=== PATIENT | male | born 1950 | race Caucasian/White ===

== ENCOUNTER 2024-11-23 13:16 | Emergency (ER) | payer OTHER, SELFPAY ==
[2024-11-23 13:24] VITALS: BP 161/89
[2024-11-23 13:49] LABS: % Basophils 0.6 % (0-2); % Eosinophils 3.5 % (0-6); % Immature Granulocytes 0.2 % (0-0.5); % Lymphocytes 36.2 % (20.5-51.1); % Monocytes 8.7 % (1.7-9.3); % Neutrophils 50.8 % (42.2-75.2); Absolute Eosinophils 0.2 10^3/uL (0-0.7); Absolute Lymphocytes 2.4 10^3/uL (1.2-3.4); Absolute Monocytes 0.6 10^3/uL (0.1-0.6); Absolute Neutrophils 3.3 10^3/uL (1.4-6.5); Hemoglobin 14.7 g/dL (13.0-18.0); Mean Corp Hgb Conc. 33.4 g/dL (33.0-37.0); Mean Corpuscular Hgb 31.4 pg (27.0-31.0); Mean Platelet Volume 9.3 fL (7.4-10.4); Nucleated Red Blood Cells % 0 % (-); Platelet Count 183 10^3/uL (130-400); Red Blood Cell Count 4.68 10^6/uL (4.70-6.10); Red Cell Dist. Width 12.8 % (11.5-14.5); White Blood Cell Count 6.5 10^3/uL (4.8-10.8)
[2024-11-23 14:01] LABS: ALT (SGPT) 30 U/L (0-50); AST (SGOT) 30 U/L (17-59); Alkaline Phosphatase 51 U/L (38-126); Blood Urea Nitrogen 21 mg/dl (9-20); Calcium 9.1 mg/dl (8.4-10.2); Carbon Dioxide 24 mmol/L (22-30); Chloride 105 mmol/L (98-107); Glucose 123 mg/dl (70-99); Potassium 4.4 mmol/L (3.5-5.1); Sodium 137 mmol/L (135-145); Total Bilirubin 0.7 mg/dl (0.2-1.3); Total Protein 7.2 g/dl (6.3-8.2); eGFR > 60.00
[2024-11-23 14:10] LABS: NT-proBNP 488 pg/ml; Troponin I < 0.012 ng/ml
--- NOTE | 2024-11-23 16:00 | ED.GENMED ---
History of Present Illness
General
Chief Complaint: Chest Pain
Source: patient and family
Exam Limitations: none
Time Seen by Provider: 11/23/24 15:07
Nursing documentation reviewed up to this point in time: agreed with
History of Present Illness
History of Present Illness:
Patient with history of chronic atrial fibrillation on Xarelto, presents to ED secondary to shortness of breath at nighttime when he lays down to sleep over the past 3 days, along with recent increased leg swelling. In addition last night, patient
did experience chest pain which resolved spontaneously when he sat up. Denies dizziness. Denies nausea or vomiting. Denies diarrhea. Denies back pain. Denies leg pain. Denies recent travel or surgery. 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
[facility]. Patient reports having received a normal stress test last summer. There is family history of heart disease Patient denies smoking, but does admit to drinking alcohol.
Past History
Past History
ED Past Medical History: HTN, Hypercholesterolemia, IDDM and Other (Vertigo)
ED Past Surgical History: Appendectomy, Cardiac (a fib) and Orthopedic (Left shoulder surgery, Left knee surgery, Hip replacement )
Social History
Tobacco: Non-smoker
Alcohol: Occasional
Personal:
Living: with family
Review of Systems
Review of Systems
Allergies reviewed?: Yes
All Other Systems: ROS reviewed and negative except as documented in HPI and ROS
Constitutional: Reports no symptoms
EENT: Reports no symptoms
Respiratory: Reports trouble breathing
Cardiac: Reports chest pain
ABD/GI: Reports no symptoms
: Reports no symptoms
Musculoskeletal: Reports no symptoms
Skin: Reports no symptoms
Neurological: Reports no symptoms
Phy Exam
Physical Exam
Physical Exam:
Physical Exam
General: mild distress, not acutely ill. afebrile. overweight.
Head: nc/at. eomi
Neck: supple. normal range of motion. no jvd
Heart: s1/s2 regular rate and rhythm, no murmur.
Lungs: no acute respiratory distress. clear bilaterally
Abdomen: normal bowel sounds. not tender.
Neuro: alert and oriented x 3. no focal neurological deficits
Skin: no rash
Psychiatric: well kept. interactive and cooperative
Extremities: LE b/l edema. no calf tenderness.
Scores
Heart Score for Chest Pain Patients
STEMI patient?: Not applicable
Course
Orders/Labs/Results
Orders:
Orders
11/23/24 13:18
Electrocardiogram (*1) Urgent
Reason for Study: Chest Pain
EKG- Treatment ONCE
11/23/24 13:35
BNP [NT-proBNP] Urgent
Complete Blood Count/With Diff Urgent
Comprehensive Metabolic Panel Urgent
Troponin I Urgent
11/23/24 15:40
CR Chest - 2 Views Urgent
Comment:
Reason For Exam: sob
Abnormal Lab Results
11/23/24
13:35
RBC 4.68 L 10^6/uL
(4.70-6.10)
MCH 31.4 H pg
(27.0-31.0)
BUN 21 H mg/dl
(9-20)
Glucose 123 H mg/dl
(70-99)
11/23/24 13:35
11/23/24 13:35
Vital Signs
Initial and Last Documented VS:
Initial Vital Signs
Temp Pulse Resp BP Pulse Ox
98.7 F 74 16 161/89 98
11/23/24 13:24 11/23/24 13:24 11/23/24 13:24 11/23/24 13:24 11/23/24 13:24
Last Documented Vital Signs
Temp Pulse Resp BP Pulse Ox
98.7 F 66 28 144/93 96
11/23/24 13:24 11/23/24 17:45 11/23/24 17:45 11/23/24 17:32 11/23/24 17:45
MDM/Problems Addressed
MDM/Problems Addressed:
Patient is presenting symptoms, i.e. orthopnea, likely multifactorial, including mild fluid retention along with body habitus, i.e. increased abdominal girth potentially pushing up on diaphragm. Discussed with on-call cardiology, Dr. POOJA Fernandes.
Agrees with plan to discharge patient home on Lasix 40 mg daily, along with an outpatient follow-up.
*EKG
Interpreted by ED Provider?: Yes
EKG Intrepretation Date: 11/23/24
Heart Rate: 73
Rate: normal
Rhythm: a-fib
[place]: normal axis
Interval: normal interval
*Critical Care Note
Total Time (30-74mins, 75-104mins- exclusive of procedures): Not Applicable
ED Attending Note
-
Portions of this chart may have been created with voice recognition software.� Occasional wrong word or��sound alike� substitutions may have occurred due to the inherent limitations of voice recognition software.
Discharge Plan
Departure
Patient Disposition: Home (Routine Discharge)
Date of Disposition: 11/23/24
Time of Disposition: 18:09
Patient with high blood pressure during this ER visit?: Yes
Condition: Good
Discharge Problem:
Dyspnea
Instructions: Shortness of breath in adults - ED discharge instructions, Chest Pain DCA Follow Up
Prescriptions:
New
furosemide [Lasix] 40 mg tablet
40 mg PO DAILY Qty: 20 0RF
No Action
atorvastatin 40 MG tablet
40 mg PO QPM
enalapril maleate 10 MG tablet
10 mg PO BID
tamsulosin 0.4 MG capsule
0.4 mg PO DAILY
metformin 500 MG tablet extended release 24 hr
500 mg PO DAILY
rivaroxaban [Xarelto] 20 MG tablet
20 mg PO QPM
metoprolol succinate 25 MG tablet extended release 24 hr
25 mg PO BID Qty: 60 0RF
Rx Instructions:
Increase Toprol XL (metoprolol succinate) to 25 mg twice a day
tramadol [Ultram] 50 MG tablet
50 mg PO Q8HPRN PRN (Reason: pain) Qty: 20 0RF
meclizine 25 MG tablet
25 mg PO TID PRN (Reason: dizziness) Qty: 20 0RF
prednisone 50 MG tablet
50 mg PO DAILY Qty: 2 0RF
oxycodone 5 mg tablet
5 mg PO Q8H PRN (Reason: pain) Qty: 10 0RF
ondansetron 4 mg tablet,disintegrating
4 mg PO TIDPRN PRN (Reason: nausea/vomiting) Qty: 7 0RF
tamsulosin [Flomax] 0.4 mg capsule
0.4 mg PO DAILY Qty: 30 0RF
meclizine [Antivert] 25 mg tablet,chewable
25 mg PO Q8HPRN PRN (Reason: nausea or vertigo) Qty: 20 0RF
Referrals:
Mickey Fernandes MD [Active] -
Shahana Blanco MD [Family Provider] -
Activity Restrictions/Additional Instructions:
As discussed, please follow-up with referred drama professor for further evaluation and treatment. Your prescription has been sent electronically to [facility] in [place].
Interventions
Interventions:
*Risk Screen - Suicide Last Done: 11/23/24 13:24
*Neglect/Abuse Screening Last Done: 11/23/24 13:24
ED- Fall Risk Assessment Last Done: 11/23/24 16:16
*Nursing Disposition Last Done: 11/23/24 18:15
ED- Cardiac Assessment Last Done: 11/23/24 16:16
Discharge Date and Time
Discharge Date/Time: 11/23/24 18:15
Print Language: INDIAN
[2024-11-23 16:12] VITALS: BP 171/107
[2024-11-23 16:32] VITALS: BP 144/99
[2024-11-23 16:36] VITALS: BMI 41.8
[2024-11-23 17:32] VITALS: BP 144/93
== END 2024-11-23 18:15 | disposition home or self-care (01) ==
LOC: EMR 13:16
PROVIDERS: Emergency Medicine; EMERGENCY PHYSICIAN Emergency Medicine; FAMILY PHYSICIAN Family Medicine
DX: R06.00 Dyspnea, unspecified (principal); I10 Essential (primary) hypertension; I48.20 Chronic atrial fibrillation, unspecified; Z79.01 Long term (current) use of anticoagulants
CPT/HCPCS: 99285; 71046; 80053; 83880; 84484; 85025; 93005

== ENCOUNTER 2024-11-29 15:27 | Inpatient (IN) | payer OTHER, SELFPAY ==
[2024-11-29 11:12] VITALS: BP 142/93
[2024-11-29 11:42] LABS: % Basophils 0.6 % (0-2); % Eosinophils 3.9 % (0-6); % Immature Granulocytes 0.3 % (0-0.5); % Lymphocytes 36.2 % (20.5-51.1); % Monocytes 10.3 % (1.7-9.3); % Neutrophils 48.7 % (42.2-75.2); Absolute Eosinophils 0.3 10^3/uL (0-0.7); Absolute Lymphocytes 2.4 10^3/uL (1.2-3.4); Absolute Monocytes 0.7 10^3/uL (0.1-0.6); Absolute Neutrophils 3.3 10^3/uL (1.4-6.5); Hematocrit 45.6 % (39.0-52.0); Hemoglobin 15.3 g/dL (13.0-18.0); Mean Corp Hgb Conc. 33.6 g/dL (33.0-37.0); Mean Corpuscular Hgb 31.4 pg (27.0-31.0); Mean Corpuscular Volume 93.6 fL (80.0-94.0); Mean Platelet Volume 9.3 fL (7.4-10.4); Nucleated Red Blood Cells % 0 % (-); Platelet Count 201 10^3/uL (130-400); Red Blood Cell Count 4.87 10^6/uL (4.70-6.10); Red Cell Dist. Width 12.6 % (11.5-14.5); White Blood Cell Count 6.7 10^3/uL (4.8-10.8)
[2024-11-29 11:57] LABS: ALT (SGPT) 33 U/L (0-50); AST (SGOT) 32 U/L (17-59); Albumin 4.7 g/dl (3.5-5.0); Alkaline Phosphatase 47 U/L (38-126); Blood Urea Nitrogen 17 mg/dl (9-20); Calcium 9.2 mg/dl (8.4-10.2); Carbon Dioxide 26 mmol/L (22-30); Chloride 100 mmol/L (98-107); Glucose 120 mg/dl (70-99); Potassium 4.4 mmol/L (3.5-5.1); Sodium 136 mmol/L (135-145); Total Bilirubin 0.9 mg/dl (0.2-1.3); Total Protein 7.6 g/dl (6.3-8.2); eGFR > 60.00
[2024-11-29 12:07] LABS: Troponin I < 0.012 ng/ml
--- NOTE | 2024-11-29 12:39 | ED.GENMED ---
History of Present Illness
<Cynthia Mcgarry PA-C - Last Filed: 11/29/24 19:03>
General
Chief Complaint: Breathing Problem
Source: patient and records
Exam Limitations: none
Time Seen by Provider: 11/29/24 12:24
History of Present Illness
History of Present Illness:
74yoM with a history of atrial fibrillation on Xarelto, hypertension, hyperlipidemia, type 2 diabetes, and obesity presenting with his family members for evaluation of shortness of breath. Patient reports dyspnea primarily at nighttime. He states he
will wake up feeling short of breath throughout the night. He is worried that his heart will stop beating. He reports that he exercises on a stationary bike for 15 minutes at a time without any issues although his son at bedside states he notices
that patient is short of breath after walking up the steps. He was seen in the ED on 11/23/24 for these symptoms and was started on Lasix 40mg daily. He saw Dr. Townsend yesterday in the office and plan was for outpatient echocardiogram, stress test,
and sleep study. Patient called the office this morning due to his worsening symptoms and was advised to go to the ED for evaluation.
Past History
<Cynthia Mcgarry PA-C - Last Filed: 11/29/24 19:03>
Past History
ED Past Medical History: HTN, Hypercholesterolemia, IDDM and Other (Vertigo)
ED Past Surgical History: Appendectomy, Cardiac (a fib) and Orthopedic (Left shoulder surgery, Left knee surgery, Hip replacement )
Social History
Tobacco: Non-smoker
Alcohol: Occasional
Personal:
Living: with family
Phy Exam
<Cynthia Mcgarry PA-C - Last Filed: 11/29/24 19:03>
General Physical Exam
General Presentation: well appearing and no apparent distress
General Skin: warm and dry
General Habitus: normal and obese
General Mental: alert
ENT Exam
ENT Exam: normocephalic
Cardiovascular Exam
Cardiovascular Exam: no murmur, irregularly irregular and other (Trace edema in bilateral lower extremities)
Pulmonary Exam
Pulmonary Exam: lungs clear, no respiratory distress, no rales, no crackles, no rhonchi and no wheezing
Neurological Exam
Neurological Exam: alert
[place] Coma Scale
Eye Opening: Spontaneous
Verbal Response: Oriented
Motor Response: Obeys Commands
GCS Total Score: 15
Skin Exam
Skin Exam: normal color and warm/dry
Psychiatric Exam
Psychiatric Exam: normal mood/affect
Scores
<Cynthia Mcgarry PA-C - Last Filed: 11/29/24 19:03>
Heart Failure Risk
Heart Failure Risk Score: Not Applicable
Course
<Cynthia Mcgarry PA-C - Last Filed: 11/29/24 19:03>
Orders/Labs/Results
Orders:
Orders
11/29/24 11:14
Electrocardiogram (*1) Urgent
Reason for Study: Shortness of Breath
11/29/24 11:15
EKG- Treatment ONCE
Chest [CR Chest - 2 Views ] Urgent
Comment:
Reason For Exam: SOB
11/29/24 11:25
Complete Blood Count/With Diff Urgent
Comprehensive Metabolic Panel Urgent
NT-proBNP Urgent
Comment: ADD ON
TSH Urgent
Comment: ADD ON
Troponin I Urgent
11/29/24 12:29
Add On- LAB Urgent
Tests Added?: pro BNP
11/29/24 12:40
Cardiac Monitoring- Treatment ONCE
11/29/24 12:46
Add On- LAB Urgent
Tests Added?: TSH
11/29/24 12:57
CARDIOLOGY CONSULT Routine
Consulting Provider: Kennedi Richards
Was physician already notified: Yes
Furosemide [Lasix] 40 mg IV NOW STA
11/29/24 14:17
Admit/Transfer Patient As Directed
Co-Sign Provider:
Level of Care: Inpatient admission
Assign to:: Telemetry
Physician / Group: Alis Suárez
Diagnosis: heart failure
Reason for Telemetry: Pulmonary Edema
Date to Stop Telemetry: 12/02/24
Time to Stop Telemetry: 11:00
Reason for Hospitalization: heart failure
Expected length of stay greater than two midnights?: Yes
ELOS- Estimated Length of Stay in days: 3
I certify the patient meets the requirements for IP care: Yes
PRN Pain Medication Management As Directed
May give lesser potent ordered pain med per pt: Yes
preference::
Protocol:: Medication orders for pain may be administered in a
manner that supports deferring to patient preference
when the pt is:
- Requesting an ordered lesser potent pain medication.
Least to most potent pain medications are defined
as: acetaminophen < NSAID < tramadol < opioids
(morphine, oxycodone, hydromorphone).
- Requesting a lesser dose of the same medication IF
ORDERED.
- Requesting a less intrusive route of administration
if both routes are prescribed by the provider (PO <
IV).
11/29/24 14:18
Echo 2D MMode Color/Doppler Routine
Reason for Study: paroxysmal nocturnal dyspnea
11/29/24 14:19
Code Status As Directed
Resuscitation Status: Full Code
12/02/24 11:00
DC Protocol for Telemetry ONCE
Abnormal Lab Results
11/29/24
11:25
MCH 31.4 H pg
(27.0-31.0)
Absolute Monos (auto) 0.7 H 10^3/uL
(0.1-0.6)
Monocytes % 10.3 H %
(1.7-9.3)
Glucose 120 H mg/dl
(70-99)
11/29/24 11:25
11/29/24 11:25
Vital Signs
Initial and Last Documented VS:
Initial Vital Signs
Temp Pulse Resp BP Pulse Ox
98.4 F 63 18 142/93 96
11/29/24 11:12 11/29/24 11:12 11/29/24 11:12 11/29/24 11:12 11/29/24 11:12
Last Documented Vital Signs
Temp Pulse Resp BP Pulse Ox
98.4 F 76 20 125/79 95
11/29/24 11:12 11/29/24 18:30 11/29/24 18:30 11/29/24 17:17 11/29/24 18:30
<Ben Workman, DO - Last Filed: 11/29/24 14:02>
Orders/Labs/Results
Orders:
Orders
11/29/24 11:14
Electrocardiogram (*1) Urgent
Reason for Study: Shortness of Breath
11/29/24 11:15
EKG- Treatment ONCE
Chest [CR Chest - 2 Views ] Urgent
Comment:
Reason For Exam: SOB
11/29/24 11:25
Complete Blood Count/With Diff Urgent
Comprehensive Metabolic Panel Urgent
NT-proBNP Urgent
Comment: ADD ON
TSH Urgent
Comment: ADD ON
Troponin I Urgent
11/29/24 12:29
Add On- LAB Urgent
Tests Added?: pro BNP
11/29/24 12:40
Cardiac Monitoring- Treatment ONCE
11/29/24 12:46
Add On- LAB Urgent
Tests Added?: TSH
11/29/24 12:57
CARDIOLOGY CONSULT Routine
Consulting Provider: Kennedi Richards
Was physician already notified: Yes
Furosemide [Lasix] 40 mg IV NOW STA
11/29/24 14:17
Admit/Transfer Patient As Directed
Co-Sign Provider:
Level of Care: Inpatient admission
Assign to:: Telemetry
Physician / Group: Alis Suárez
Diagnosis: heart failure
Reason for Telemetry: Pulmonary Edema
Date to Stop Telemetry: 12/02/24
Time to Stop Telemetry: 11:00
Reason for Hospitalization: heart failure
Expected length of stay greater than two midnights?: Yes
ELOS- Estimated Length of Stay in days: 3
I certify the patient meets the requirements for IP care: Yes
PRN Pain Medication Management As Directed
May give lesser potent ordered pain med per pt: Yes
preference::
Protocol:: Medication orders for pain may be administered in a
manner that supports deferring to patient preference
when the pt is:
- Requesting an ordered lesser potent pain medication.
Least to most potent pain medications are defined
as: acetaminophen < NSAID < tramadol < opioids
(morphine, oxycodone, hydromorphone).
- Requesting a lesser dose of the same medication IF
ORDERED.
- Requesting a less intrusive route of administration
if both routes are prescribed by the provider (PO <
IV).
11/29/24 14:18
Echo 2D MMode Color/Doppler Routine
Reason for Study: paroxysmal nocturnal dyspnea
11/29/24 14:19
Code Status As Directed
Resuscitation Status: Full Code
12/02/24 11:00
DC Protocol for Telemetry ONCE
Abnormal Lab Results
11/29/24
11:25
MCH 31.4 H pg
(27.0-31.0)
Absolute Monos (auto) 0.7 H 10^3/uL
(0.1-0.6)
Monocytes % 10.3 H %
(1.7-9.3)
Glucose 120 H mg/dl
(70-99)
11/29/24 11:25
11/29/24 11:25
Vital Signs
Initial and Last Documented VS:
Initial Vital Signs
Temp Pulse Resp BP Pulse Ox
98.4 F 63 18 142/93 96
11/29/24 11:12 11/29/24 11:12 11/29/24 11:12 11/29/24 11:12 11/29/24 11:12
Last Documented Vital Signs
Temp Pulse Resp BP Pulse Ox
98.4 F 76 20 125/79 95
11/29/24 11:12 11/29/24 18:30 11/29/24 18:30 11/29/24 17:17 11/29/24 18:30
<Cynthia Mcgarry PA-C - Last Filed: 11/29/24 19:03>
MDM/Problems Addressed
Differential Diagnosis Includes:
74yoM here with SOB, PND, and orthopnea. Seen in the ED last week for the same and seen by cardiology in the office yesterday. No CP. Currently feeling well. VSS. He is well appearing in no distress. Trace edema in extremities. Lungs CTA and
respirations non-labored. Differential diagnosis includes but is not limited to: CHF exacerbation, DONTE, pneumonia, ACS
Initial ED plan: Cardiac labs and EKG obtained in triage. EKG shows slow afib without ischemic changes. Troponin WNL. Will add BNP and CXR. Will discuss with cardiology.
<Cynthia Mcgarry PA-C - Last Filed: 11/29/24 19:03>
*EKG
Interpreted by ED Provider?: Yes
EKG Intrepretation Date: 11/29/24
Heart Rate: 56
Rate: bradycardiac
Rhythm: a-fib
[place]: normal axis
Interval: normal interval
QRS Pattern: normal QRS
Ischemia: no ischemia
*Critical Care Note
Total Time (30-74mins, 75-104mins- exclusive of procedures): Not Applicable
<Cynthia Mcgarry PA-C - Last Filed: 11/29/24 19:03>
Update Note
Update Note:
Chest x-ray clear without signs of pulmonary edema. BNP actually improved from last week. Case discussed with production graphic designer on-call, Dr. Richards, who recommends admission. 40mg IV Lasix ordered and patient admitted for further evaluation and
management.
ED Attending Note
<Cynthia Mcgarry PA-C - Last Filed: 11/29/24 19:03>
-
Portions of this chart may have been created with voice recognition software.� Occasional wrong word or��sound alike� substitutions may have occurred due to the inherent limitations of voice recognition software.
<Ben Workman DO - Last Filed: 11/29/24 14:02>
ED Attending Note
Patient seen and examined by attending physician: Yes
I performed the substantive portion of visit, reviewed & personally made and approve the management plan that is documented in note by myself or ONEAL.: Yes
ED Attending Note:
Seen with PA examined independently 74-year-old male subacute onset of shortness of breath had been in the ER recently weight is actually down after diuretic apparently sent in for an echo stress test will need an outpatient sleep study
Discharge Plan
Departure
Patient Disposition: Admit
Date of Disposition: 11/29/24
Time of Disposition: 12:59
Presentation/result/management discussed w/ accepting MD/DO: Hospitalist
Discharge Problem:
Shortness of breath, Acute exacerbation of CHF (congestive heart failure)
Interventions
Interventions:
*Risk Screen - Suicide Last Done: 11/29/24 11:12
*General Assessment Last Done: 11/29/24 11:12
*Neglect/Abuse Screening Last Done: 11/29/24 11:12
ED- Cardiac Assessment Last Done: 11/29/24 14:11
ED- Pulmonary Assessment Last Done: 11/29/24 14:11
[2024-11-29] MEDS: LASIX 40 MG IV ×2 (13:02→21:33)
[2024-11-29 13:33] LABS: NT-proBNP 368 pg/ml
--- NOTE | 2024-11-29 13:44 | HPS.HSE ---
Family Physician
-
Family Physician: Shahana Blanco MD
Chief Complaint
-
shortness of breath
History of Present Illness
Mr. George Roque is a 74 yo man with hx paroxysmal afib, essential HTN, HLD, DM II, BPH presents to the ER with shortness of breath predominately at nighttime. He was seen int he ER on 11/23/24 for similar symptoms, case was discussed with
Dom and patient was started on Lasix 40mg PO QD with outpatient follow up.
Patient states that since last visit he has lost 11-12 pounds and has been urinating a lot. He saw Dr. Townsend in clinic yesterday. Overnight he had a more difficult time sleeping, he felt he couldn't breathe laying flat and so was told to come
to the ER. He has some mild chest pressure during periods of shortness of breath at night, denies discomfort during the day. Denies shortness of breath with activity. He had LE swelling before last ER visit that is now resolved. Currently at
rest he denies symptoms.
No recent fevers/chills. No nausea/vomiting/diarrhea. No abdominal pain.
Medical History
Past Medical History
Past Medical History: Reports Other ( paroxysmal afib, essential HTN, HLD, DM II, BPH)
Past Surgical History: Reports Other
Social History
Tobacco: Non-smoker
Alcohol: Daily (has not drank in 12 days )
Family History
Family History: Not pertinent
Allergies / Home Medications
Allergies reflects when Allergies were last updated in [facility].
Home Medications with original date entered in [facility]
Allergy/Medication List:
Allergies
Allergy/AdvReac Type Severity Reaction Status Date / Time
No Known Allergies Allergy Verified 11/29/24 11:12
Home Medications
rivaroxaban 20 mg tablet (Xarelto) 20 mg PO QPM 10/03/17
tamsulosin 0.4 mg capsule 0.4 mg PO DAILY 10/03/17
furosemide 40 mg tablet (Lasix) 40 mg PO DAILY #20 tabs 11/23/24
amlodipine 5 mg tablet (Norvasc) 5 mg PO DAILY 11/29/24
enalapril maleate 20 mg tablet 20 mg PO DAILY 11/29/24
ezetimibe 10 mg tablet (Zetia) 10 mg PO DAILY 11/29/24
icosapent ethyl 1 gram capsule (Vascepa) 2 g PO BID 11/29/24
metformin 500 mg tablet 500 mg PO BID 11/29/24
rosuvastatin 40 mg tablet (Crestor) 40 mg PO DAILY 11/29/24
Review of Systems
-
History Source: Patient
A 12 point ROS was completed and negative except as noted: Yes
Physical Exam
Vital Signs
Vital Signs
Temp Pulse Resp BP Pulse Ox
98.4 F 63 18 142/93 96
11/29/24 11:12 11/29/24 11:12 11/29/24 11:12 11/29/24 11:12 11/29/24 11:12
Physical Exam
General: No Apparent Distress
HEENT: PERRLA
Respiratory: No Wheezes or Rales
Cardiac: S1/S2 and Regular Rhythm
GI: Soft and Non Tender
Musculoskeletal: No Edema
Skin: Warm and Dry; No Rash
Neuro: AO x 3
Psych: Calm
Laboratory Results
-
11/29/24 11:25
11/29/24 11:25
Laboratory Results
Total Bilirubin 0.9 mg/dl (0.2-1.3) 11/29/24 11:25
AST 32 U/L (17-59) 11/29/24 11:25
ALT 33 U/L (0-50) 11/29/24 11:25
Alkaline Phosphatase 47 U/L (38-126) 11/29/24 11:25
Troponin I < 0.012 ng/ml 11/29/24 11:25
Data Reviewed
-
Diagnostic Radiology: Report Reviewed by me
Lab Data: Labs Reviewed by me
Impression/Plan
-
Mr. George Roque is a 74 yo man with hx paroxysmal afib, essential HTN, HLD, DM II, BPH presents to the ER with shortness of breath predominately at nighttime. He was seen int he ER on 11/23/24 for similar symptoms, case was discussed with
Dom and patient was started on Lasix 40mg PO QD with outpatient follow up.
Triage VS:
T 98.4, P 63, RR 18, BP 142/93, SpO2 96%
LABS: WBC 6.7, Hg 15.3, PLT 201, Na 136, K+ 4.4, CO2 26, BUN 17, Cr 0.9, Glucoe 120, liver enzymes WNL
EKG: Afib, rate 56
CXR
IMPRESSION:
No acute cardiopulmonary abnormality.
Low lung volumes.
MAR: Lasix 40mg IV x 1
Heart Failure, unknown EF
Paroxysmal Nocturnal Dyspnea
-admit to telemetry
-TTE
-trend Troponins
-Lasix 40mg IV QD - adjust as needed
-daily weights, strict I/O
-cardiology consult
-patient will need sleep study as outpatient, continue evening nocturnal O2 testing prior to DC
Paroxysmal Fib
-TANK CREWMEMBER Xarelto - change to heparin gtt if elevated Troponins
Essential HTN
-TANK CREWMEMBER Amlodipine, Enalapril
Hyperlipidemia
-T[employer]MEMBER Rosuvastatin
DM II
-hold TANK CREWMEMBER Metformin
-ISS low
BPH
-TANK CREWMEMBER Flomax
DVT PPx TANK CREWMEMBER Xarelto
FULL CODE
[2024-11-29 14:09] VITALS: BMI 37.1
[2024-11-29 14:48] LABS: TSH 1.27 uIU/ml (0.47-4.68)
--- NOTE | 2024-11-29 16:36 | CON.CAR ---
Addendum entered and electronically signed by Mickey Finn MD 11/29/24 17:42:
Attending addendum: Briefly this is a 74 y/o gentleman with a history of atrial fibrillation on chronic oral anticoagulation. He recently transitioned care from Dr. Velez at [place] to Dr. Townsend. he presented to [facility] with complaints
of PND and orthopnea. Symptoms have been intermittent over some time but worsening of late. An order has been written for a sleep study but not completed or even scheduled yet.
No chest pain. Weights slowly increasing.
Tob: None
ETOH: Vodka use is reported to be much heavier per his daughter than reported by the patient. He stated 2-3 drinks of Vodka and she responded it is 2-3x more than he stated. She also states he drinks whiskey and cognac in addition to the vodka
PE:
Gen: Mobridly obese
HEENT: NC/AT, sclera anicteric
Lungs: Crackles at bases. No wheezing. Good air movement
CV: Irreg irreg. No murmur noted
Abd: Soft, nontender, nondistended.
Ext: Good distal pulses. Trace edema
ProBnp: 368, Trop <0.012, TSH: 1.27, Gluc: 120
RECOMMENDATIONS:
-Echocardiogram
-May consider SGLT2 if EF normal.
-Needs tight blood pressure control.
-Would change enalapril (typically a 2x daily med) to either lisinopril or benazepril given longer half-life of these medications. Lets start lisinopril
-I suspect he will have significant obstructive sleep apnea: monitor
-IV diuresis
-Planned cardioversion. Will need to be clear if he has been compliant with oral anticoagulation vs ITZEL / CV
-Monitor for withdrawal symptoms. Family indicates significant alcohol use and seems to indicate that patient minimized reported intake
Original Note:
Consultation
Consultation Request
Date/Time Consultation Requested: 11/29/24
Date/Time Consultation Performed: 11/29/24
Requesting Provider: Dr. Suárez
Performing Provider: Dr. Finn
Reason for Consultation: Acute HF
Medical History
-
History of Present Illness:
Patient came to ER today with overnight symptoms of orthopnea is now being admitted with acute HF and cardiology has been consulted. Patient was previously followed by Dr. Velez at [place] for his cardiology care. He has a history of A-fib
and reportedly has not had an attempt at rhythm control and denies ever having been CV'd in the past. Patient is chronically on Xarelto 20 mg daily. Patient is not chronically on any rate control therapy. Patient establish new cardiology care with
Dr. Townsend in the office yesterday after an evaluation in ER on 11/23/2024 at which time he was started on Lasix 40 mg daily for evidence of acute HF. When patient was seen in the office yesterday he appeared improved, but overnight had more
orthopnea and came to ER today. Interestingly, proBNP is lower than last and is only 368 today and CXR without pleural effusion.
PMH:
Persistent Afib
Chronic Xarelto OAC
HTN
Hyperlipidemia
Past Medical History
Past Medical History: Other (in HPI)
Past Surgical History: Appendectomy and Orthopedic
Social History
Tobacco: Non-Smoker
Alcohol: Other (4-6 drinks (vodka shots) 3-4 times a week)
Drug: None
Living: With Family
Family History
Family History: CAD and Other (3 older brothers with CVA)
Allergies / Home Medications
Allergy/AdvReac Type Severity Reaction Status Date / Time
No Known Allergies Allergy Verified 11/29/24 11:12
�Medication �Instructions �Recorded �Confirmed �Type
rivaroxaban 20 mg tablet (Xarelto) 20 mg PO QPM Blood Clot 10/03/17 11/29/24 History
Prevention/Tx
tamsulosin 0.4 mg capsule 0.4 mg PO DAILY Urinary Issue 10/03/17 11/29/24 History
amlodipine 5 mg tablet (Norvasc) 5 mg PO DAILY Blood Pressure 11/29/24 11/29/24 History
enalapril maleate 20 mg tablet 20 mg PO DAILY Blood Pressure 11/29/24 11/29/24 History
ezetimibe 10 mg tablet (Zetia) 10 mg PO DAILY High Cholesterol 11/29/24 11/29/24 History
furosemide 40 mg tablet (Lasix) 40 mg PO DAILY Fluid 11/29/24 11/29/24 History
Retention/Swelling
icosapent ethyl 1 gram capsule 2 g PO BID High Cholesterol 11/29/24 11/29/24 History
(Vascepa)
metformin 500 mg tablet 500 mg PO BID Diabetes 11/29/24 11/29/24 History
rosuvastatin 40 mg tablet (Crestor) 40 mg PO DAILY High Cholesterol 11/29/24 11/29/24 History
Review of Systems
-
History Source: Patient and Family (daughter bedside helping with HPI)
All other systems: Negative unless noted
Physical Exam
Vital Signs
Temp Pulse Resp BP Pulse Ox
98.4 F 71 21 142/93 96
11/29/24 11:12 11/29/24 14:00 11/29/24 14:00 11/29/24 11:12 11/29/24 14:00
GEN: NAD. AAOx3
HEENT: EOMI, MMM
LUNGS: RA. CTA B/L, no wheeze
CV: Afib on tele, rate controlled. Reg, S1/S2, 1/ syst LSB
ABD: soft, BS+, NT, ND
EXT: Trace B/L LE edema. No clubbing, cyanosis or lesions B/L
NEURO: Gross non-focal
SKIN: Warm, dry and pink. No rash
Lab Results
11/29/24 11:25
11/29/24 11:25
Troponin I < 0.012 ng/ml 11/29/24 11:25
Gcu-T-Ggtmnegtddd Pept Cancelled 11/29/24 12:25
Impression / Plan
-
PCP: Dr. Blanco
Cardiology: Dr. Townsend, seen as a new patient 11/28/24
Impression:
Admitted with acute HF 11/29/24
Acute HFpEF
EF preserved by preliminary echo report 11/29/24
Persistent Afib
Chronic Xarelto OAC
HTN
Hyperlipidemia
Echo 05/2024: [place] study, EF 60 to 65%, mild TR
Echo 11/29/2024: Preliminary report, preserved EF, no significant valve disease
Plan:
-Patient came to ER today with overnight symptoms of orthopnea is now being admitted with acute HF and cardiology has been consulted. Patient was previously followed by Dr. Velez at [place] for his cardiology care. He has a history of A-fib
and reportedly has not had an attempt at rhythm control and denies ever having been CV'd in the past. Patient is chronically on Xarelto 20 mg daily. Patient is not chronically on any rate control therapy. Patient established new cardiology care
with Dr. Townsend in the office yesterday after an evaluation in ER on 11/23/2024 at which time he was started on Lasix 40 mg daily for evidence of acute HF. When patient was seen in the office yesterday he appeared improved, but overnight had
more orthopnea and came to ER today. Interestingly, proBNP is lower than last and is only 368 today and CXR without pleural effusion.
-ECG reviewed by me with Afib in controlled ventricular response.
-pro-BNP is lower than last ER visit last week, but patient with ongoing orthopnea. Agree with attempt at IV diuresis with Lasix 40 mg IV BID.
-Patient with protuberant abdomen and some of his SOB and orthopnea might be physiologic.
-Await final echo report.
-Will try adding Toprol XL 12.5 mg daily
-Cont outpatient dose of enalapril 10 mg daily
-Cont outpatient dose of amlodipine 5 mg daily
-Consider adding Farxiga 10 mg daily
-Patient with persistent Afib and reportedly no previous attempt at rhythm control and no h/o CV. Following IV diuresis will attempt CV on Tuesday. Reviewed with patient and daughter that given persistent nature of Afib that if patient has an
unsuccessful CV then we would add AAD and consider evaluation for ablation pending patient's symptomatic response to mandaen of SR.
-Cont outpatient dose of Xarelto 20 mg daily, no missed doses
-Patient will need an outpatient sleep study, but if significant pauses seen on tele could consider a continuous pulse ox. Patient's daughter was told that CPAP therapy can only be ordered from the results of an outpatient sleep study.
-Task sent to medical records at [facility] office to try and obtain the records that patient's daughter says she brought to appt yesterday. Task in eCW.
-Patient's daughter requesting a private room for patient she says because patient snores. Called admissions and made them aware. Advised patient and daughter that based on census this might be difficult to accommodate.
[2024-11-29 17:17] VITALS: BP 125/79
[2024-11-29 19:33] VITALS: BP 127/86
[2024-11-29 20:00] VITALS: BP 113/92
--- NOTE | 2024-11-29 20:08 | EDRN ---
Pt. noted to have 1.7 second pause on rn cardiac cath. Strip printed and scanned into chart, admitting team notified of event, no further orders at this time, will continue to monitor.
[2024-11-29 20:35] VITALS: BMI 35.2
[2024-11-29 21:00] VITALS: BP 137/90
[2024-11-29 21:18] LABS: Glucose - Point of Care 103 mg/dl (70-99)
[2024-11-29] MEDS: XARELTO 20 MG PO (21:32)
[2024-11-29 22:28] LABS: Troponin I < 0.012 ng/ml
[2024-11-29 23:00] VITALS: BP 121/79
[2024-11-30] VITALS (9 sets, daily range): BP systolic 82–135; BP diastolic 50–81; BMI 34.7
[2024-11-30 00:17] LABS: Glucose - Point of Care 113 mg/dl (70-99)
[2024-11-30 04:23] LABS: Troponin I < 0.012 ng/ml
[2024-11-30 06:49] LABS: Hematocrit 50.2 % (39.0-52.0); Mean Corp Hgb Conc. 33.9 g/dL (33.0-37.0); Mean Corpuscular Hgb 31.7 pg (27.0-31.0); Mean Corpuscular Volume 93.5 fL (80.0-94.0); Mean Platelet Volume 9.4 fL (7.4-10.4); Platelet Count 218 10^3/uL (130-400); Red Blood Cell Count 5.37 10^6/uL (4.70-6.10); Red Cell Dist. Width 12.5 % (11.5-14.5); White Blood Cell Count 7.9 10^3/uL (4.8-10.8)
[2024-11-30 07:17] LABS: Blood Urea Nitrogen 20 mg/dl (9-20); Calcium 9.6 mg/dl (8.4-10.2); Carbon Dioxide 28 mmol/L (22-30); Chloride 100 mmol/L (98-107); Estimated Creatinine Clearance 80 ml/min; Glucose 128 mg/dl (70-99); HDL Cholesterol 43 mg/dl; LDL Cholesterol, Calculated 155 mg/dl; Magnesium 2.4 mg/dl (1.6-2.3); Potassium 4.4 mmol/L (3.5-5.1); Sodium 140 mmol/L (135-145); Total Cholesterol 227 mg/dl (50-199); Triglyceride 145 mg/dl (10-149); Very Low Density Lipoprotein 29 mg/dl (0-30); eGFR > 60.00
[2024-11-30 08:04] LABS: Hepatitis C Antibody Negative (Negative)
[2024-11-30] MEDS: ZETIA 10 MG PO (08:30)
[2024-11-30] MEDS: NORVASC 5 MG PO (08:31)
[2024-11-30] MEDS: ZESTRIL 20 MG PO (08:32)
[2024-11-30] MEDS: FLOMAX 0.4 MG PO (08:32)
[2024-11-30] MEDS: CRESTOR 40 MG PO (08:32)
[2024-11-30] MEDS: LASIX 40 MG IV (08:32)
[2024-11-30 08:37] LABS: Glucose - Point of Care 123 mg/dl (70-99)
--- NOTE | 2024-11-30 09:49 | W.PN.CARDCBS ---
Addendum entered and electronically signed by Mickey Fernandes MD 11/30/24 16:22:
74-year-old man admitted with acute HFpEF and persistent atrial fibrillation. He apparently was still complaining of dyspnea last night, maybe better now. He has been hypotensive on lisinopril and amlodipine 5 mg daily
PMH: In addition to above hypertension, hyperlipidemia, type 2 diabetes
Current medications: Lisinopril 20 mg a day, amlodipine 5 mg a day, ezetimibe 10 mg a day, Vascepa, Xarelto 20 mg a day, rosuvastatin 40 mg a day, tamsulosin 0.4 mg daily, furosemide 40 IV twice daily and metoprolol ER 25 mg daily
117/65, 88/53, weight is 106.6 kg, down 1.3 kg, if accurate was 117.4 kg in ER on November 23, offers no complaints, seems comfortable, irregular rate and rhythm, no obvious murmurs, JVD okay, abdomen obese, not much edema
EKG today atrial fibrillation, 71 bpm, nonspecific ST changes
White count 7.9, hemoglobin 17, platelets 218, BUN and creatinine 20 and 1.0, potassium 4.4, proBNP 368, troponin undetectable
Impression:
Acute HFpEF
Persistent atrial fibrillation
Hypertension
Hyperlipidemia
Type 2 diabetes
Echo 11/29/2024: EF is 55 to 60%, dilated left atrium, trace mitral regurgitation, normal aortic valve, pulmonary artery systolic pressure 35 to 35 mmHg normal RV
Plan:
Continue IV furosemide
Add Farxiga, check with case management already cost
Hold amlodipine/lisinopril at present
Overall heart rates are reasonable but rise with activity, metoprolol has been added
Tentatively for cardioversion Tuesday.
Original Note:
Today's Communication / Plan
-
Continue IV lasix
Start Toprol 25mg daily
Continue Xarelto 20mg daily
Plan is for CV on Sunday 12/03
Impression / Plan
-
PCP: Dr. Blanco
Cardiology: Dr. Townsend, seen as a new patient 11/28/24
Impression:
Presented with orthopnea, SOB
Acute HFpEF
Persistent Afib
Chronic Xarelto OAC
HTN
Hyperlipidemia
Echo 05/2024: [place] study, EF 60 to 65%, mild TR
Echo 11/29/2024: EF 55-60%, mild cLVH, trace MR, trace TR, estimated PAP 30-35 mmHg
Plan:
-Presented with worsening SOB/orthopnea. Admitted with acute HFpEF.
-Diuresing with IV lasix 40mg BID. Creat stable at 1.0.
-Weight down at least 2 lbs overnight, down to 235 lbs on 11/30.
-Continue daily weights, I&Os.
-Echo 11/29 noted preserved EF with no significant valvular disease as noted above.
-Remains in persistent atrial fibrillation. Reportedly has no h/o attempts at rhythm control and has no h/o CV. Plan is to attempt CV on Tuesday, 12/03.
-Eventually consider OP eval for ablation/AAD therapy.
-Continue Xarelto 20mg daily. No missed doses.
-OP sleep study being arranged. Form faxed after visit w/ Dr. Townsend 11/28.
-Continue lisinopril 20 mg daily, amlodipine 5mg daily.
-HRs do jump up w/ ambulation. Will start Toprol 25mg daily.
-Consider SGLT2 inhibitor. Will as CM to assess the cost of Jardiance/Farxiga.
-TSH wnl at 1.27.
Plan: Patient came to ER today with overnight symptoms of orthopnea is now being admitted with acute HF and cardiology has been consulted. Patient was previously followed by Dr. Velez at [place] for his cardiology care. He has a history of
A-fib and reportedly has not had an attempt at rhythm control and denies ever having been CV'd in the past. Patient is chronically on Xarelto 20 mg daily. Patient is not chronically on any rate control therapy. Patient established new cardiology
care with Dr. Townsend in the office yesterday after an evaluation in ER on 11/23/2024 at which time he was started on Lasix 40 mg daily for evidence of acute HF. When patient was seen in the office yesterday he appeared improved, but overnight
had more orthopnea and came to ER today. Interestingly, proBNP is lower than last and is only 368 today and CXR without pleural effusion.
Progress Note - Finger Waver
Subjective
Date of Service: November 30, 2024
Breathing better while sleeping last night. No edema. No palpitations.
Objective
Labs:
11/30/24 06:28
11/30/24 06:28
Labs
Hgb 17.0 g/dL (13.0-18.0) 11/30/24 06:28
Hct 50.2 % (39.0-52.0) 11/30/24 06:28
Plt Count 218 10^3/uL (130-400) 11/30/24 06:28
Sodium 140 mmol/L (135-145) 11/30/24 06:28
Potassium 4.4 mmol/L (3.5-5.1) 11/30/24 06:28
BUN 20 mg/dl (9-20) 11/30/24 06:28
Creatinine 1.0 mg/dL (0.7-1.3) 11/30/24 06:28
Glucose 128 mg/dl (70-99) H 11/30/24 06:28
Troponins
11/29/24 11/29/24 11/30/24
11:25 21:43 03:06
Troponin I < 0.012 < 0.012 < 0.012
Vital Signs and I&O:
Vital Signs
Temp Pulse Resp BP Pulse Ox
98.2 F 83 21 135/81 98
11/30/24 07:00 11/30/24 07:00 11/30/24 07:00 11/30/24 07:00 11/30/24 07:00
Vital Signs
Temp Pulse Resp BP Pulse Ox
98.2 F 83 21 135/81 98
11/30/24 07:00 11/30/24 07:00 11/30/24 07:00 11/30/24 07:00 11/30/24 07:00
Intake & Output
11/28/24 11/29/24 11/30/24 12/01/24
06:59 06:59 06:59 06:59
Intake Total 480 / 480 240 / 240
Balance 480 / 480 240 / 240
Physical Exam
Physical Exam
GEN: No distress, awake, alert, oriented x3
HEENT: supple, anicteric, mmm
LUNGS: CTA b/l, no wheezes/rales
CV irregularly irregular, S1/S2, no murmur
EXT: No clubbing, cyanosis, or edema
NEURO: Gross non-focal
SKIN: Warm, dry, no rash
[2024-11-30 11:57] LABS: Glucose - Point of Care 127 mg/dl (70-99)
--- NOTE | 2024-11-30 13:04 | CM ---
CM reviewed chart, received consult for cost of Jardiance/Farxiga 10 mg for 30 day supply. CM placed call to patients pharmacy, [facility] in [facility], per pharmacist- both medications covered. Patient seen bedside with daughterDorie, assisted
with translation. Per daughter, patient resides with , daughter, and son in two story home, two steps to enter. Patient has a cane at home if needed, denies VN or SNF. Patient PCP Dr. Blanco, pharmacy [facility] in [place]. Patient
and daughter provided with names of medication (Jardiance and Farxiga) and medication is covered. Per Cardiology, patient for CV Tuesday. CM will continue to follow for all discharge planning needs.
Plan; home with family, watch for possible VN needs.
--- NOTE | 2024-11-30 13:11 | W.PN.HOSP.TC ---
Today's Communication/Plan
-
Monitor vital signs see plan
Continue with IV Lasix
Start metoprolol
Plan for cardioversion Tuesday
Continue Xarelto
Assessment / Plan
Assessment / Plan
General: No Apparent Distress
HEENT: PERRLA
Respiratory: No Wheezes or Rales
Cardiac: S1/S2 and irregular Rhythm
GI: Soft and Non Tender
Musculoskeletal: No Edema
Skin: Warm and Dry; No Rash
Neuro: AO x 3
Psych: Calm
Acute CHF with preserved ejection fraction
Paroxysmal Nocturnal Dyspnea
Echo with preserved EF
Continue with IV Lasix
-daily weights, strict I/O
-cardiology follow
-patient will need sleep study as outpatient
Persistent fib
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
Cardiology following
Metoprolol
Plan for cardioversion Tuesday
Essential HTN
-VACUUM CLEANER MECHANIC Amlodipine, Enalapril
Hyperlipidemia
-VACUUM CLEANER MECHANIC Rosuvastatin
DM II
-hold VACUUM CLEANER MECHANIC Metformin
-ISS low
A1c 7
BPH
-VACUUM CLEANER MECHANIC Flomax
DVT PPx VACUUM CLEANER MECHANIC Xarelto
FULL CODE
I spent a total of 52 minutes with the patient or on the floor. More than 50% of this time involved counseling and coordination of care.
Anticipated Discharge: > 48 hours
Subjective/Interval History
-
Date of Service: November 30, 2024
Denies chest pain
Objective Data
-
Labs:
Laboratory Results
11/30/24
06:28
WBC 7.9
Hgb 17.0
Hct 50.2
Plt Count 218
Sodium 140
Potassium 4.4
Chloride 100
Carbon Dioxide 28
BUN 20
Creatinine 1.0
Glucose 128 H
Calcium 9.6
Vital Signs:
Vital Signs
Temp Pulse Resp BP Pulse Ox
98.2 F 83 21 135/81 98
11/30/24 07:00 11/30/24 07:00 11/30/24 07:00 11/30/24 07:00 11/30/24 11:55
I&O
11/29/24 11/30/24 12/01/24
06:59 06:59 06:59
Intake Total 480 / 480 240 / 240
Balance 480 / 480 240 / 240
[2024-11-30] MEDS: TOPROL XL 25 MG PO (13:53)
[2024-11-30 16:37] LABS: Glucose - Point of Care 143 mg/dl (70-99)
--- NOTE | 2024-11-30 16:58 | PTCARENOTE ---
Addendum entered by Ok Villa RN 11/30/24 17:36:
Fide Velazquez is a physician speech pathologist assistant, not SIGNALING DESIGN ENGINEER
Original Note:
Pt due Lasix 40mg IV. BP 88/55. HR 80s - 90s. Pt stating intermittent dizziness. Instructed to return to bed. Fide Velazquez, YANY, notified. Order to hold this dose of Lasix 40 mg IV.
[2024-11-30] MEDS: LASIX IV (17:41)
[2024-11-30] MEDS: XARELTO 20 MG PO (17:43)
[2024-11-30 22:39] LABS: Glucose - Point of Care 127 mg/dl (70-99)
--- NOTE | 2024-11-30 23:00 | PTCARENOTE ---
Pt. was having frequent pauses of 2.56, asymptomatic, notified YANY Mcgill, heart rate drops to 30-40's when sleeping but trends upwards quickly, will continue to monitor pt. status.
[2024-12-01 03:35] VITALS: BP 89/70
[2024-12-01 06:00] VITALS: BMI 34.7
[2024-12-01 07:00] VITALS: BP 108/70
[2024-12-01 08:52] LABS: Glucose - Point of Care 132 mg/dl (70-99)
[2024-12-01] MEDS: TOPROL XL PO (09:19)
[2024-12-01] MEDS: CRESTOR 40 MG PO (09:20)
[2024-12-01] MEDS: LASIX 40 MG IV (09:20)
[2024-12-01] MEDS: FLOMAX 0.4 MG PO (09:20)
[2024-12-01] MEDS: ZETIA 10 MG PO (09:20)
[2024-12-01] MEDS: FARXIGA 10 MG PO (09:20)
[2024-12-01 10:54] LABS: Blood Urea Nitrogen 42 mg/dl (9-20); Calcium 9.2 mg/dl (8.4-10.2); Carbon Dioxide 24 mmol/L (22-30); Chloride 99 mmol/L (98-107); Estimated Creatinine Clearance 50 ml/min; Glucose 126 mg/dl (70-99); Potassium 3.7 mmol/L (3.5-5.1); Sodium 138 mmol/L (135-145)
[2024-12-01 11:00] VITALS: BP 100/67
[2024-12-01 11:19] LABS: Glucose - Point of Care 128 mg/dl (70-99)
--- NOTE | 2024-12-01 12:34 | W.PN.HOSP.TC ---
Today's Communication/Plan
-
Monitor vital signs see plan
Give 500 cc volume back
Hold further IV Lasix
Hold further metoprolol
Continue to monitor telemetry
Monitor renal function
Assessment / Plan
Assessment / Plan
General: No Apparent Distress
HEENT: PERRLA
Respiratory: No Wheezes or Rales
Cardiac: S1/S2 and irregular Rhythm
GI: Soft and Non Tender
Musculoskeletal: No Edema
Skin: Warm and Dry; No Rash
Neuro: AO x 3
Psych: Calm
Acute CHF with preserved ejection fraction
Paroxysmal Nocturnal Dyspnea
Echo with preserved EF
Was getting IV Lasix, hold further Lasix given BRENDA
-daily weights, strict I/O
-cardiology following
-patient will need sleep study as outpatient
BRENDA
monitor
Periods of hypotension overnight
Hold further Lasix, give 500 cc back and monitor
Persistent fib
Now with frequent pauses and bradycardia; if persistent could likely need pacemaker
-SCOOP FILLER Xarelto
Cardiology following
Hold metoprolol
Plan for cardioversion Tuesday
Essential HTN
Hold amlodipine, enalapril
Hyperlipidemia
-SCOOP FILLER Rosuvastatin
DM II
-hold SCOOP FILLER Metformin
-ISS low
A1c 7
BPH
-SCOOP FILLER Flomax
DVT PPx SCOOP FILLER Xarelto
FULL CODE
I spent a total of 51 minutes with the patient or on the floor. More than 50% of this time involved counseling and coordination of care.
Anticipated Discharge: > 48 hours
Subjective/Interval History
-
Date of Service: December 01, 2024
has some dizziness
Objective Data
-
Labs:
Laboratory Results
12/01/24
08:43
Sodium 138
Potassium 3.7
Chloride 99
Carbon Dioxide 24
BUN 42 H
Creatinine 1.6 H
Glucose 126 H
Calcium 9.2
Vital Signs:
Vital Signs
Temp Pulse Resp BP Pulse Ox
97.9 F 74 18 108/70 95
12/01/24 07:00 12/01/24 07:00 12/01/24 07:00 12/01/24 07:00 12/01/24 07:00
I&O
11/30/24 12/01/24 12/02/24
06:59 06:59 06:59
Intake Total 480 / 480 480 / 480
Balance 480 / 480 480 / 480
[2024-12-01] MEDS: NSS 500 IV (13:32)
--- NOTE | 2024-12-01 15:37 | W.PN.CARDCBS ---
Today's Communication / Plan
-
Cardioversion Tuesday
Amlodipine, furosemide, metoprolol, lisinopril on hold given BRENDA and relative hypotension
Impression / Plan
-
PCP: Dr. Blanco
Cardiology: Dr. Townsend, seen as a new patient 11/28/24
Impression:
Presented with orthopnea, SOB
Acute HFpEF
Persistent Afib
Chronic Xarelto OAC
HTN
Hyperlipidemia
Echo 05/2024: [facility], EF 60 to 65%, mild TR
Echo 11/29/2024: EF 55-60%, mild cLVH, trace MR, trace TR, estimated PAP 30-35 mmHg
Plan:
Clinically he looks well without evidence of heart failure.
Blood pressure is still relatively low but improved. Metoprolol, lisinopril and amlodipine all on hold.
However he has BRENDA related to diuretics which are now on hold.
Heart rate is reasonably controlled but still elevated when he moves around.
Continue to hold furosemide, metoprolol, lisinopril and amlodipine at present.
Restart diuretic when renal function improves.
He is still on dapagliflozin, will continue for now.
Plan is for cardioversion on Tuesday.
Plan: Patient came to ER today with overnight symptoms of orthopnea is now being admitted with acute HF and cardiology has been consulted. Patient was previously followed by Dr. Velez at [place] for his cardiology care. He has a history of
A-fib and reportedly has not had an attempt at rhythm control and denies ever having been CV'd in the past. Patient is chronically on Xarelto 20 mg daily. Patient is not chronically on any rate control therapy. Patient established new cardiology
care with Dr. Townsend in the office yesterday after an evaluation in ER on 11/23/2024 at which time he was started on Lasix 40 mg daily for evidence of acute HF. When patient was seen in the office yesterday he appeared improved, but overnight
had more orthopnea and came to ER today. Interestingly, proBNP is lower than last and is only 368 today and CXR without pleural effusion.
Progress Note - Reel Cart Operator
Subjective
Date of Service: December 01, 2024:
Current meds: Amlodipine 5 mg a day on hold, ezetimibe 10 mg daily, Xarelto 20 mg at bedtime, rosuvastatin 40 mg a day, tamsulosin 0.4 mg daily, furosemide 40 mg IV twice daily, currently on hold, metoprolol ER 25 mg daily on hold, dapagliflozin 10
mg a day
100/67, pulse 98, respiratory 18, sats are 95% afebrile, weight is 106.4 kg, Which is unchanged, no distress, head neck exam unremarkable, lungs are clear, irregular rate and rhythm with controlled rates, abdomen obese, extremities without much
edema neck veins okay
potassium is 3.7, BUN and creatinine are 42 and 1.6, creatinine yesterday was 1.0
EKG today atrial fibrillation with ventricular response of 72 bpm
Objective
Labs:
11/30/24 06:28
12/01/24 08:43
Labs
Hgb 17.0 g/dL (13.0-18.0) 11/30/24 06:28
Hct 50.2 % (39.0-52.0) 11/30/24 06:28
Plt Count 218 10^3/uL (130-400) 11/30/24 06:28
Sodium 138 mmol/L (135-145) 12/01/24 08:43
Potassium 3.7 mmol/L (3.5-5.1) 12/01/24 08:43
BUN 42 mg/dl (9-20) H 12/01/24 08:43
Creatinine 1.6 mg/dL (0.7-1.3) H 12/01/24 08:43
Glucose 126 mg/dl (70-99) H 12/01/24 08:43
Troponins
11/29/24 11/29/24 11/30/24
21:43 03:06
Troponin I < 0.012 < 0.012 < 0.012
Vital Signs and I&O:
Vital Signs
Temp Pulse Resp BP Pulse Ox
36.6 C 98 18 100/67 95
12/01/24 11:00 12/01/24 11:00 12/01/24 11:00 12/01/24 11:00 12/01/24 11:00
Vital Signs
Temp Pulse Resp BP Pulse Ox
36.6 C 98 18 100/67 95
12/01/24 11:00 12/01/24 11:00 12/01/24 11:00 12/01/24 11:00 12/01/24 11:00
Intake & Output
11/29/24 11/30/24 12/01/24 12/02/24
07:59 07:59 07:59 07:59
Intake Total 480 / 480 480 / 480
Balance 480 / 480 480 / 480
Physical Exam
Physical Exam
See above
[2024-12-01 16:00] VITALS: BP 98/68
[2024-12-01 16:27] LABS: Glucose - Point of Care 118 mg/dl (70-99)
[2024-12-01] MEDS: XARELTO 20 MG PO (17:10)
[2024-12-01 19:54] VITALS: BP 98/67
[2024-12-01 21:50] LABS: Glucose - Point of Care 124 mg/dl (70-99)
[2024-12-01 23:31] VITALS: BP 118/83
[2024-12-02 03:00] VITALS: BP 100/66
[2024-12-02 05:57] LABS: % Basophils 0.4 % (0-2); % Eosinophils 4.5 % (0-6); % Immature Granulocytes 0.1 % (0-0.5); % Lymphocytes 33.5 % (20.5-51.1); % Monocytes 10.5 % (1.7-9.3); Absolute Eosinophils 0.3 10^3/uL (0-0.7); Absolute Lymphocytes 2.5 10^3/uL (1.2-3.4); Absolute Monocytes 0.8 10^3/uL (0.1-0.6); Absolute Neutrophils 3.8 10^3/uL (1.4-6.5); Hematocrit 45.2 % (39.0-52.0); Hemoglobin 15.4 g/dL (13.0-18.0); Mean Corp Hgb Conc. 34.1 g/dL (33.0-37.0); Mean Corpuscular Hgb 31.4 pg (27.0-31.0); Mean Corpuscular Volume 92.2 fL (80.0-94.0); Mean Platelet Volume 9.5 fL (7.4-10.4); Nucleated Red Blood Cells % 0 % (-); Platelet Count 189 10^3/uL (130-400); Red Cell Dist. Width 12.3 % (11.5-14.5); White Blood Cell Count 7.5 10^3/uL (4.8-10.8)
[2024-12-02 06:00] VITALS: BMI 34.9
[2024-12-02 06:08] LABS: Blood Urea Nitrogen 38 mg/dl (9-20); Calcium 9.1 mg/dl (8.4-10.2); Carbon Dioxide 26 mmol/L (22-30); Chloride 99 mmol/L (98-107); Estimated Creatinine Clearance 57 ml/min; Glucose 130 mg/dl (70-99); Magnesium 2.6 mg/dl (1.6-2.3); Potassium 4.5 mmol/L (3.5-5.1); Sodium 137 mmol/L (135-145)
[2024-12-02 07:29] VITALS: BP 129/81
[2024-12-02 07:57] LABS: Glucose - Point of Care 126 mg/dl (70-99)
[2024-12-02] MEDS: ZETIA 10 MG PO (09:00)
[2024-12-02] MEDS: FARXIGA 10 MG PO (09:00)
[2024-12-02] MEDS: FLOMAX 0.4 MG PO (09:00)
[2024-12-02] MEDS: CRESTOR 40 MG PO (09:00)
[2024-12-02 10:39] LABS: Glucose - Point of Care 125 mg/dl (70-99)
[2024-12-02 11:00] VITALS: BP 115/66
--- NOTE | 2024-12-02 11:03 | W.PN.HOSP.TC ---
Addendum entered and electronically signed by Claudio Durand MD 12/02/24 13:26:
Disregard 'Check A1c'
Addendum entered and electronically signed by Claudio Durand MD 12/02/24 13:25:
Check A1c
Original Note:
Today's Communication/Plan
-
Monitor vital signs see plan
N.p.o. past midnight for cardioversion tomorrow
Continue to monitor creatinine
Continue to hold diuresis, metoprolol, enalapril
Assessment / Plan
Assessment / Plan
General: No Apparent Distress
HEENT: PERRLA
Respiratory: No Wheezes or Rales
Cardiac: S1/S2 and irregular Rhythm
GI: Soft and Non Tender
Musculoskeletal: No Edema
Skin: Warm and Dry; No Rash
Neuro: AO x 3
Psych: Calm
Acute CHF with preserved ejection fraction
Paroxysmal Nocturnal Dyspnea
Echo with preserved EF
Was getting IV Lasix, hold further Lasix given BRENDA
-daily weights, strict I/O
-cardiology following
-patient will need sleep study as outpatient
BRENDA
monitor
Likely secondary to overdiuresis and periods of hypotension
Hold further Lasix, gave 500 cc back on 12/01; monitor creatinine
Persistent fib
Now with frequent pauses and bradycardia after starting metoprolol, if persistent could likely need pacemaker
-SMALL KICK PRESS OPERATOR Xarelto
Cardiology following
Hold metoprolol
Plan for cardioversion Tuesday
Essential HTN
Hold amlodipine, enalapril
Hyperlipidemia
-SMALL KICK PRESS OPERATOR Rosuvastatin
DM II
-hold SMALL KICK PRESS OPERATOR Metformin
-ISS low
A1c 7
BPH
-SMALL KICK PRESS OPERATOR Flomax
DVT PPx SMALL KICK PRESS OPERATOR Xarelto
FULL CODE
Anticipated Discharge: 24 - 48 hours
Subjective/Interval History
-
Date of Service: December 02, 2024
denies pain
Objective Data
-
Labs:
Laboratory Results
12/02/24
04:51
WBC 7.5
Hgb 15.4
Hct 45.2
Plt Count 189
Sodium 137
Potassium 4.5
Chloride 99
Carbon Dioxide 26
BUN 38 H
Creatinine 1.4 H
Glucose 130 H
Calcium 9.1
Vital Signs:
Vital Signs
Temp Pulse Resp BP Pulse Ox
98.2 F 80 18 129/81 96
12/02/24 07:29 12/02/24 07:29 12/02/24 07:29 12/02/24 07:29 12/02/24 07:29
I&O
12/01/24 12/02/24 12/03/24
06:59 06:59 06:59
Intake Total 480 / 480 480 / 480
Balance 480 / 480 480 / 480
--- NOTE | 2024-12-02 11:15 | CM ---
CM reviewed chart, patient for Cardioversion 12/03. CM will continue to follow for all discharge planning needs.
Plan; home with family, watch for VN needs, when medically stable.
[2024-12-02 14:51] LABS: Glucose - Point of Care 142 mg/dl (70-99)
[2024-12-02 15:00] VITALS: BP 106/64
--- NOTE | 2024-12-02 18:00 | W.PN.CARDCBS ---
Today's Communication / Plan
-
Cardioversion in a.m.
Continue to hold amlodipine, carvedilol, enalapril, furosemide, metoprolol
Impression / Plan
-
PCP: Dr. Blanco
Cardiology: Dr. Townsend, seen as a new patient 11/28/24
Impression:
Presented with orthopnea, SOB
Acute HFpEF
Persistent Afib
Chronic Xarelto OAC
HTN
Hyperlipidemia
Echo 05/2024: [facility], EF 60 to 65%, mild TR
Echo 11/29/2024: EF 55-60%, mild cLVH, trace MR, trace TR, estimated PAP 30-35 mmHg
Plan:
He seems improved, currently amlodipine, furosemide, and metoprolol are all on hold. Enalapril/lisinopril has been discontinued. He has not had episodes of PND or orthopnea.
With this, there is no overt evidence of HFpEF at present, his heart rate is still reasonable at rest though increases with activity, renal function is better and blood pressure is no longer low.
He remains anticoagulated and is scheduled for cardioversion tomorrow. Risks and benefits, process reviewed with both patient and with his daughter over the phone.
Continue dapagliflozin.
They are aware that with persistent atrial fibrillation likelihood of maintaining sinus rhythm is reduced. I explained that if he reestablishes sinus rhythm even if the short-term if he feels better that would indicate that additional attempts to
maintain sinus rhythm such as PVI would potentially be warranted.
Plan: Patient came to ER today with overnight symptoms of orthopnea is now being admitted with acute HF and cardiology has been consulted. Patient was previously followed by Dr. Velez at [facility] for his cardiology care. He has a history of
A-fib and reportedly has not had an attempt at rhythm control and denies ever having been CV'd in the past. Patient is chronically on Xarelto 20 mg daily. Patient is not chronically on any rate control therapy. Patient established new cardiology
care with Dr. Townsend in the office yesterday after an evaluation in ER on 11/23/2024 at which time he was started on Lasix 40 mg daily for evidence of acute HF. When patient was seen in the office yesterday he appeared improved, but overnight
had more orthopnea and came to ER today. Interestingly, proBNP is lower than last and is only 368 today and CXR without pleural effusion.
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
Subjective
Date of Service: December 02, 2024:
He feels better, no orthopnea
Medications: Amlodipine 5 mg a day, furosemide 40 IV twice daily, metoprolol all on hold, receiving dapagliflozin, ezetimibe, rivaroxaban, rosuvastatin, tamsulosin
106/64, pulse 91, resp rate 16, afebrile, weight is 107.3 kg, which is up 0.9 kg, lungs are clear, trace edema, irregular rate and rhythm without obvious murmurs
Hemoglobin is 15.4, creatinine is 1.4, had been 1.6, BUN is 38, had been 42, potassium is 4.5
Telemetry: Rate is overall well-controlled, with activity he is in the low to mid 100s.
Objective
Labs:
12/02/24 04:51
12/02/24 04:51
Labs
Hgb 15.4 g/dL (13.0-18.0) 12/02/24 04:51
Hct 45.2 % (39.0-52.0) 12/02/24 04:51
Plt Count 189 10^3/uL (130-400) 12/02/24 04:51
Sodium 137 mmol/L (135-145) 12/02/24 04:51
Potassium 4.5 mmol/L (3.5-5.1) 12/02/24 04:51
BUN 38 mg/dl (9-20) H 12/02/24 04:51
Creatinine 1.4 mg/dL (0.7-1.3) H 12/02/24 04:51
Glucose 130 mg/dl (70-99) H 12/02/24 04:51
Troponins
11/29/24 11/30/24
21:43 03:06
Troponin I < 0.012 < 0.012
Vital Signs and I&O:
Vital Signs
Temp Pulse Resp BP Pulse Ox
36.9 C 91 16 106/64 95
12/02/24 15:00 12/02/24 15:00 12/02/24 15:00 12/02/24 15:00 12/02/24 15:00
Vital Signs
Temp Pulse Resp BP Pulse Ox
36.9 C 91 16 106/64 95
12/02/24 15:00 12/02/24 15:00 12/02/24 15:00 12/02/24 15:00 12/02/24 15:00
Intake & Output
11/30/24 12/01/24 12/02/24 12/03/24
07:59 07:59 07:59 07:59
Intake Total 480 / 480 480 / 480 480 / 480 960 / 960
Balance 480 / 480 480 / 480 480 / 480 960 / 960
Physical Exam
Physical Exam
See above
[2024-12-02] MEDS: XARELTO 20 MG PO (18:35)
[2024-12-02 19:30] VITALS: BP 122/73
[2024-12-02 21:03] LABS: Glucose - Point of Care 109 mg/dl (70-99)
[2024-12-02 23:30] VITALS: BP 108/72
[2024-12-03 03:29] VITALS: BP 112/73
[2024-12-03 06:00] VITALS: BMI 34.9
[2024-12-03 07:22] VITALS: BP 119/79
[2024-12-03 07:36] LABS: Glucose - Point of Care 137 mg/dl (70-99)
[2024-12-03] MEDS: FLOMAX 0.4 MG PO (07:57)
[2024-12-03] MEDS: CRESTOR 40 MG PO (07:57)
[2024-12-03] MEDS: FARXIGA 10 MG PO (07:57)
[2024-12-03] MEDS: ZETIA 10 MG PO (07:57)
[2024-12-03 09:21] LABS: % Basophils 0.7 % (0-2); % Eosinophils 2.9 % (0-6); % Immature Granulocytes 0.3 % (0-0.5); % Lymphocytes 27.4 % (20.5-51.1); % Monocytes 9.8 % (1.7-9.3); % Neutrophils 58.9 % (42.2-75.2); Absolute Basophils 0.1 10^3/uL (0-0.2); Absolute Eosinophils 0.2 10^3/uL (0-0.7); Absolute Lymphocytes 1.9 10^3/uL (1.2-3.4); Absolute Monocytes 0.7 10^3/uL (0.1-0.6); Absolute Neutrophils 4.1 10^3/uL (1.4-6.5); Hematocrit 48.1 % (39.0-52.0); Hemoglobin 16.2 g/dL (13.0-18.0); Mean Corp Hgb Conc. 33.7 g/dL (33.0-37.0); Mean Corpuscular Hgb 31.5 pg (27.0-31.0); Mean Corpuscular Volume 93.6 fL (80.0-94.0); Mean Platelet Volume 9.9 fL (7.4-10.4); Nucleated Red Blood Cells % 0 % (-); Platelet Count 204 10^3/uL (130-400); Red Blood Cell Count 5.14 10^6/uL (4.70-6.10); Red Cell Dist. Width 12.2 % (11.5-14.5)
[2024-12-03 09:55] LABS: Blood Urea Nitrogen 27 mg/dl (9-20); Calcium 9.5 mg/dl (8.4-10.2); Carbon Dioxide 25 mmol/L (22-30); Chloride 103 mmol/L (98-107); Estimated Creatinine Clearance 73 ml/min; Glucose 128 mg/dl (70-99); Magnesium 2.4 mg/dl (1.6-2.3); Potassium 4.5 mmol/L (3.5-5.1); Sodium 139 mmol/L (135-145); eGFR > 60.00
--- NOTE | 2024-12-03 10:54 | W.PN.CARDCBS ---
Today's Communication / Plan
-
Successful cardioversion today
Impression / Plan
-
.
PCP: Dr. Blanco
Cardiology: Dr. Townsend, seen as a new patient 11/28/24
Impression:
Presented with orthopnea, SOB
Acute HFpEF
Persistent Afib
Chronic Xarelto OAC
HTN
Hyperlipidemia
Echo 05/2024: [facility], EF 60 to 65%, mild TR
Echo 11/29/2024: EF 55-60%, mild cLVH, trace MR, trace TR, estimated PAP 30-35 mmHg
Plan:
Successful cardioversion today. Continue anticoagulation.
Remains sinus.
Cont to hold Metoprolol with prior bradycardia. ACEI has been stopped.
Possibly resume Lasix next 24 hrs, outpt dosing.
Cont to hold amlodipine.
He has been encouraged to refrain from alcohol as his daughter states that he drinks a lot of hard liquor. Reviewed with him that alcohol use can increase risk of recurrent afib.
Also discussed agreement over sleep study as untreated sleep apnea may increase risk of recurrent aFib.
He appears euvolemic.
Continue dapagliflozin.
He and daughter understand that recurrent aFib is likely and he may ultimately benefit from PVI.
Discussed with daughter via phone. She was appreciative.
Reviewed with primary service.
Plan: Patient came to ER today with overnight symptoms of orthopnea is now being admitted with acute HF and cardiology has been consulted. Patient was previously followed by Dr. Velez at [facility] for his cardiology care. He has a history of
A-fib and reportedly has not had an attempt at rhythm control and denies ever having been CV'd in the past. Patient is chronically on Xarelto 20 mg daily. Patient is not chronically on any rate control therapy. Patient established new cardiology
care with Dr. Townsend in the office yesterday after an evaluation in ER on 11/23/2024 at which time he was started on Lasix 40 mg daily for evidence of acute HF. When patient was seen in the office yesterday he appeared improved, but overnight
had more orthopnea and came to [facility] ER today. Interestingly, proBNP is lower than last and is only 368 today and CXR without pleural effusion.
Progress Note - Paper Grader
Subjective
Date of Service: December 03, 2024
Pt seen and examined. No complaints. No chest pain or shortness of breath.
Objective
Labs:
12/03/24 07:20
12/03/24 07:20
Labs
Hgb 16.2 g/dL (13.0-18.0) 12/03/24 07:20
Hct 48.1 % (39.0-52.0) 12/03/24 07:20
Plt Count 204 10^3/uL (130-400) 12/03/24 07:20
Sodium 139 mmol/L (135-145) 12/03/24 07:20
Potassium 4.5 mmol/L (3.5-5.1) 12/03/24 07:20
BUN 27 mg/dl (9-20) H 12/03/24 07:20
Creatinine 1.1 mg/dL (0.7-1.3) 12/03/24 07:20
Glucose 128 mg/dl (70-99) H 12/03/24 07:20
Vital Signs and I&O:
Vital Signs
Temp Pulse Resp BP Pulse Ox
98.1 F 83 18 119/79 100
12/03/24 07:22 12/03/24 07:22 12/03/24 07:22 12/03/24 07:22 12/03/24 07:22
Vital Signs
Temp Pulse Resp BP Pulse Ox
98.1 F 83 18 119/79 100
12/03/24 07:22 12/03/24 07:22 12/03/24 07:22 12/03/24 07:22 12/03/24 07:22
Intake & Output
12/01/24 12/02/24 12/03/24 12/04/24
06:59 06:59 06:59 06:59
Intake Total 480 / 480 480 / 480 960 / 960
Balance 480 / 480 480 / 480 960 / 960
Physical Exam
Physical Exam
General: No acute distress, AAOX3
Neck: Negative JVD
Heart: Irregularly irregular, Negative S3 positive S1/S2, Negative S4, No murmur
Lungs: CTA b/l, negative wheezes/rales/rhonchi
Abd: Positive BS, NT/ND, neg rebound/rigidity/guarding
Ext: Negative cyanosis/clubbing/edema
Neuro: nonfocal
--- NOTE | 2024-12-03 11:21 | ITS.CL.CARDI ---
Content Analyst - Cardioversion
Cardioversion
Procedure Report:
Date of Procedure: Dec 03 2024
Procedure: Cardioversion
Indication: Symptomatic atrial fibrillation
Performing Physician: Zacarias Deluca DO, FACC
Technique: The patient was brought to the holding area. Signed informed consent was obtained. A time out was called and performed. The patient was anesthetized by the anesthesia service. Anticoagulation status was reviewed and appropriate. R2 pads
were placed anteriorly and posteriorly. A 250 J synchronized biphasic shock restored normal sinus rhythm without significant bradycardia. There were no complications.
Conclusion: Uncomplicated cardioversion from atrial fibrillation to sinus rhythm.
Recommendation: Routine post cardioversion care. Continue oysterman anticoagulation.
--- NOTE | 2024-12-03 13:42 | W.PN.HOSP.TC ---
Today's Communication/Plan
-
Discharge
Assessment / Plan
Assessment / Plan
General: No Apparent Distress
HEENT: PERRLA
Respiratory: No Wheezes or Rales
Cardiac: S1/S2 and irregular Rhythm
GI: Soft and Non Tender
Musculoskeletal: No Edema
Skin: Warm and Dry; No Rash
Neuro: AO x 3
Psych: Calm
Acute CHF with preserved ejection fraction
Paroxysmal Nocturnal Dyspnea
Echo with preserved EF
Was getting IV Lasix, hold further Lasix given BRENDA
-daily weights, strict I/O
-cardiology following
-patient will need sleep study as outpatient
BRENDA -resolved. Diuretics on hold.
Likely secondary to overdiuresis and periods of hypotension
Persistent atrial fibrillation -successfully converted to sinus rhythm today. Continue Xarelto.
Now with frequent pauses and bradycardia after starting metoprolol, if persistent could likely need pacemaker
Alcohol use disorder -strict abstinence recommended. Discussed with patient.
Essential HTN
Hold amlodipine, enalapril due to BRENDA, hypotension
Hyperlipidemia
-SHIPYARD PAINTER APPRENTICE Rosuvastatin
DM2 without hyperglycemia -hemoglobin A1c 7.0%. Glucose 128 this morning.
-hold SHIPYARD PAINTER APPRENTICE Metformin
-ISS low
BPH
-SHIPYARD PAINTER APPRENTICE Flomax
Obesity due to excess calories
DVT PPx SHIPYARD PAINTER APPRENTICE Xarelto
FULL CODE
Dispo -medically stable for discharge home today. Discussed with cardiology. Updated at the bedside. Outpatient follow-up.
32 minutes spent in discharge process.
Anticipated Discharge: Today
Subjective/Interval History
-
Date of Service: December 03, 2024
Patient seen and examined. No complaints.
Objective Data
-
Labs:
Laboratory Results
12/03/24
07:20
WBC 7.0
Hgb 16.2
Hct 48.1
Plt Count 204
Sodium 139
Potassium 4.5
Chloride 103
Carbon Dioxide 25
BUN 27 H
Creatinine 1.1
Glucose 128 H
Calcium 9.5
Vital Signs:
Vital Signs
Temp Pulse Resp BP Pulse Ox
98.1 F 83 18 119/79 100
12/03/24 07:22 12/03/24 07:22 12/03/24 07:22 12/03/24 07:22 12/03/24 07:22
I&O
12/02/24 12/03/24 12/04/24
06:59 06:59 06:59
Intake Total 480 / 480 960 / 960
Balance 480 / 480 960 / 960
Review of Systems
-
History Source: Patient
All other systems: Reviewed and negative
--- NOTE | 2024-12-03 13:49 | W.DS.TRANS ---
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
-
Discharge Instructions:
Sleep Apnea Risk High
Discharge Diagnosis/Procedures Acute heart failure exacerbation, atrial
fibrillation
Diet Diabetic, Carb Controlled
Activity As tolerated
Driving Restrictions As prior to admission
Bathing Restrictions None
Instructions: *[facility] Heart Failure Instructions
Stand-Alone Forms:
Changes to Home Medications: No
Discharge Medications:
DC Medications w/original date entered in [facility]
rivaroxaban 20 mg tablet (Xarelto) 20 mg PO QPM Blood Clot Prevention/Tx 10/03/17
tamsulosin 0.4 mg capsule 0.4 mg PO DAILY Urinary Issue 10/03/17
ezetimibe 10 mg tablet (Zetia) 10 mg PO DAILY High Cholesterol 11/29/24
furosemide 40 mg tablet (Lasix) 40 mg PO DAILY Fluid Retention/Swelling 11/29/24
icosapent ethyl 1 gram capsule (Vascepa) 2 g PO BID High Cholesterol 11/29/24
metformin 500 mg tablet 500 mg PO BID Diabetes 11/29/24
rosuvastatin 40 mg tablet (Crestor) 40 mg PO DAILY High Cholesterol 11/29/24
dapagliflozin propanediol 10 mg tablet 10 mg PO DAILY #30 tabs 12/03/24
Home Medication Changes
Pending Results: No
[2024-12-03 13:54] LABS: Glucose - Point of Care 132 mg/dl (70-99)
[2024-12-03 14:29] VITALS: BP 123/73
--- NOTE | 2024-12-03 14:51 | CM ---
CM reviewed chart, patient seen bedside with family, for discharge today. Patient denies needs upon discharge. IMM verbally reviewed, agreeable to discharge, placed in chart. Family to provide transportation home. CM will continue to follow for all
discharge planning needs.
Plan; home with family, no needs.
--- NOTE | 2024-12-04 10:14 | W.HF.CON ---
Heart Failure
- LV Function
Left ventricular function study result: LV Ejection fraction >/= 50%
Ejection Fraction Percentage: 55-60
- ARNI
Patient already on ARNI: No
Heart Failure ARNI Not Indicated: LV Ejection Fraction >/= 40%
- ACEI/ARB
Patient already on ACEI/ARB: No
Heart Failure ACEI/ARB Not Indicated: LV Ejection Fraction > 40%
- Beta Yunior
Patient already on Evidence Based Beta Yunior: No
Heart Failure Evidence Based Beta Yunior Not Indicated: LV Ejection Fraction > 40%
- Mineralocorticord Receptor Antagonist
Patient already on MRA: No
Heart Failure MRA Not Indicated: LV Ejection Fraction > 40%
- SGLT-2 Inhibitor
Patient already on SGLT-2 Inhibitor: Yes
- Afib Anticoagulation
Patient already on Anticoagulation for Afib: Yes
- NYHA CHF Classification
NYHA CHF Classification Level: Class III - Symptoms w/ min exertion, interferes w/ nml daily activity
- ACC/AHA Stage
ACC/AHA Stage: Stage C: Symptomatic Heart Failure
== END 2024-12-03 14:44 | disposition home or self-care (01) | DRG 291 ==
LOC: 4 WEST ACU 15:27
PROVIDERS: Emergency Medicine; Internal Medicine; Nuclear Medicine Nuclear Cardiology; ADMITTING PHYSICIAN Student in an Organized Health Care Education/Training Program; ATTENDING PHYSICIAN Hospitalist; EMERGENCY PHYSICIAN Emergency Medicine; FAMILY PHYSICIAN Family Medicine; OTHER PHYSICIAN Internal Medicine Interventional Cardiology
PROC: 5A2204Z Restoration of Cardiac Rhythm, Single (ICD-10-PCS; 2024-12-03)
DX: I11.0 Hypertensive heart disease with heart failure (principal); I50.33 Acute on chronic diastolic (congestive) heart failure; I48.19 Other persistent atrial fibrillation; N17.9 Acute kidney failure, unspecified; N40.0 Benign prostatic hyperplasia without lower urinary tract symptoms; I25.10 Atherosclerotic heart disease of native coronary artery without angina pectoris; I07.1 Rheumatic tricuspid insufficiency; F10.10 Alcohol abuse, uncomplicated; E11.9 Type 2 diabetes mellitus without complications; I95.9 Hypotension, unspecified; T50.2X5A Adverse effect of carbonic-anhydrase inhibitors, benzothiadiazides and other diuretics, initial encounter; E78.00 Pure hypercholesterolemia, unspecified; E66.09 Other obesity due to excess calories; Z79.01 Long term (current) use of anticoagulants; Z79.84 Long term (current) use of oral hypoglycemic drugs; Z79.899 Other long term (current) drug therapy; Z68.37 Body mass index [BMI] 37.0-37.9, adult; Z96.649 Presence of unspecified artificial hip joint
CPT/HCPCS: 71046; 80048; 80053; 80061; 82962; 83036; 83735; 83880; 84443; 84484; 85025; 85027; 86803; 92960; 93005; 93306; 96374; 99285